=== PATIENT | female | born 1975 | race African-American/Black ===

== ENCOUNTER → 2017-09-25 | Outpatient (CLI) | payer BC ==
[~2017-09-25] MED LIST: CONTRAST GIVEN MC
[2017-09-25] MEDS: IOHEXOL 240 MG/ML 50ML VIAL. PO ×2 (10:49)
[2017-09-25] MEDS: IOHEXOL 300 MG/ML 100ML VIAL. IV ×2 (10:49)
== END | disposition home or self-care (01) ==
LOC: KCIC CT 09:27
DX: M51.37 Other intervertebral disc degeneration, lumbosacral region (principal); M47.817 Spondylosis without myelopathy or radiculopathy, lumbosacral region; R10.2 Pelvic and perineal pain
CPT/HCPCS: 74177; Q9966; Q9967

== ENCOUNTER 2018-07-27 21:32 | Emergency (ER) | payer BC ==
[~2018-07-27] VITALS: Ht 157.5 cm; Wt 53.1 kg
[~2018-07-27 21:32] MED LIST changes: -CONTRAST GIVEN MC; +DICY20TA3 PO
[2018-07-28] MEDS ORDERED: METH4TAB2 PO (01:01)
[2018-07-28] MEDS ORDERED: CLOB15CR TP (01:01)
[2018-07-28] MEDS ORDERED: DOXY100C2 PO (01:01)
--- NOTE | 2018-07-28 01:03 | PHYS DOC ---
Past Medical History Past Medical History: Other Additional Past Medical Histor: ECZEMA Past Surgical History: Other Additional Past Surgical Histo: HERNIA REPAIR, ABLASION Alcohol Use: Occasionally Drug Use: None Adult General Chief Complaint Chief Complaint: SKIN RASH/ABSCESS [facility] Patient is a 42 year old female who presents with an exacerbation of her eczema. The patient has widespread eczema to bilateral extremities, abdomen and back. She has actually been in a clinical trial but stopped the medication thinking it was exacerbating the condition. Review of Systems Review of Systems Constitutional: Denies fever or chills [] Respiratory: Denies cough or shortness of breath [] Cardiovascular: No additional information not addressed in HPI [] GI: Denies abdominal pain, nausea, vomiting, bloody stools or diarrhea [] : Denies dysuria or hematuria [] Musculoskeletal: Denies back pain or joint pain [] Integument: See history of present illness Neurologic: Denies headache, focal weakness or sensory changes [] Endocrine: Denies polyuria or polydipsia [] All other systems were reviewed and found to be within normal limits, except as documented in this note. Allergies Allergies Allergies Coded Allergies Type Severity Reaction Last Updated Verified No Known Drug Allergies 09/25/17 No Physical Exam Physical Exam Constitutional: Well developed, well nourished, no acute distress, non-toxic appearance. [] Cardiovascular:Heart rate regular rhythm, no murmur [] Lungs & Thorax: Bilateral breath sounds clear to auscultation [] Abdomen: Bowel sounds normal, soft, no tenderness, no masses, no pulsatile masses. [] Skin: The patient has thickening to her skin over bilateral forearms, abdomen, and back with a small erythematous papules that show signs of excoriation, this appears to be a secondary skin infection Back: No tenderness, no CVA tenderness. [] Extremities: No tenderness, no cyanosis, no clubbing, ROM intact, no edema. [] Neurologic: Alert and oriented X 3, normal motor function, normal sensory function, no focal deficits noted. [] Psychologic: Affect normal, judgement normal, mood normal. [] Current Patient Data Vital Signs Vital Signs Date Time Temp Pulse Resp B/P (MAP) Pulse Ox O2 Delivery O2 Flow Rate FiO2 07/28/18 01:19 64 18 106/66 (79) 99 Room Air 07/27/18 22:13 98.1 98.1 EKG EKG [] Radiology/Procedures Radiology/Procedures [] Course & Med Decision Making Course & Med Decision Making Pertinent Labs and Imaging studies reviewed. (See chart for details) [] Staff Physician Addendum: I was working in the ER during the course of this patient's visit. I was available for consultation as needed, but I was not directly involved in the care of this patient. Dragon Disclaimer Dragon Disclaimer This electronic medical record was generated, in whole or in part, using a voice recognition dictation system. Departure Departure Impression: Primary Impression: Eczema Additional Impression: Secondary infection of skin Disposition: HOME, SELF-CARE Condition: STABLE Referrals: NO PCP (PCP) Patient Instructions: Eczema, Skin Infections Additional Instructions: Use the cream as directed. Take the Medrol Dosepak with food on your stomach. Make sure to have food on her stomach when you take the doxycycline as well. Follow-up with your primary care provider for a recheck of your eczema in one week or return to the emergency department if worsening. Scripts Doxycycline Hyclate (DOXYCYCLINE HYCLATE) 100 Mg Capsule 1 CAP PO BID for skin infection, #20 CAP Prov: PHIL BABIN APRN 07/28/18 Methylprednisolone (MEDROL) 4 Mg Tab.ds.pk 1 PKG PO UD for itching, #1 PKG Prov: PHIL BABIN APRN 07/28/18 Clobetasol Propionate (CLOBETASOL PROPIONATE) 15 Gm Cream..g. 1 RAI TP BID for itching, #30 GM 1 Refill Prov: PHIL BABIN APRN 07/28/18 Problem Qualifiers PHIL BABIN APRN Jul 28, 2018 01:03 LEESA WATERMAN MD Jul 28, 2018 03:18
[2018-07-28 01:19] VITALS: BP 106/66
== END 2018-07-28 01:23 | disposition home or self-care (01) ==
LOC: ER 21:32
DX: L30.8 Other specified dermatitis (principal); L08.89 Other specified local infections of the skin and subcutaneous tissue
CPT/HCPCS: 99283

== ENCOUNTER 2018-08-18 19:55 | Emergency (ER) | payer BC, OTHER ==
[~2018-08-18] VITALS: Ht 157.5 cm; Wt 53.1 kg
[2018-08-18 19:55] VITALS: BP 128/65
[~2018-08-18 19:55] MED LIST changes: +CLOB15CR TP; +DOXY100C2 PO; +METH4TAB2 PO
[2018-08-18] MEDS ORDERED: DOXY100C14 PO (20:19)
[2018-08-18] MEDS ORDERED: PRED20TA PO (20:19)
[2018-08-18] MEDS ORDERED: HYDR453. TP (20:19)
--- NOTE | 2018-08-18 20:19 | PHYS DOC ---
Past Medical History Past Medical History: Other Additional Past Medical Histor: ECZEMA Past Surgical History: Other Additional Past Surgical Histo: HERNIA REPAIR, ABLASION Alcohol Use: Occasionally Drug Use: None Adult General Chief Complaint Chief Complaint: SKIN RASH/ABSCESS HPI HPI Patient is a 42 year old F with severe eczema on her back, arms and legs. She was seen here in late Jun and given steroids and abx and did well but states it has returned and is horribly itchy and grewal. Review of Systems Review of Systems Constitutional: Denies fever or chills [] Eyes: Denies change in visual acuity, redness, or eye pain [] HENT: Denies nasal congestion or sore throat [] Respiratory: Denies cough or shortness of breath [] Cardiovascular: No additional information not addressed in HPI [] GI: Denies abdominal pain, nausea, vomiting, bloody stools or diarrhea [] : Denies dysuria or hematuria [] Musculoskeletal: Denies back pain or joint pain [] Integument: Denies rash or skin lesions [] Neurologic: Denies headache, focal weakness or sensory changes [] Endocrine: Denies polyuria or polydipsia [] All other systems were reviewed and found to be within normal limits, except as documented in this note. Allergies Allergies Allergies Coded Allergies Type Severity Reaction Last Updated Verified No Known Drug Allergies 09/25/17 No Physical Exam Physical Exam Constitutional: Well developed, well nourished, no acute distress, non-toxic appearance. [] HENT: Normocephalic, atraumatic, bilateral external ears normal, oropharynx moist, no oral exudates, nose normal. [] Eyes: PERRLA, EOMI, conjunctiva normal, no discharge. [] Neck: Normal range of motion, no tenderness, supple, no stridor. [] Cardiovascular:Heart rate regular rhythm, no murmur [] Lungs & Thorax: Bilateral breath sounds clear to auscultation [] Abdomen: Bowel sounds normal, soft, no tenderness, no masses, no pulsatile masses. [] Skin: Warm, dry, no erythema, no rash. [] Back: No tenderness, no CVA tenderness. [] Extremities: No tenderness, no cyanosis, no clubbing, ROM intact, no edema. [] Neurologic: Alert and oriented X 3, normal motor function, normal sensory function, no focal deficits noted. [] Psychologic: Affect normal, judgement normal, mood normal. [] EKG EKG [] Radiology/Procedures Radiology/Procedures [] Course & Med Decision Making Course & Med Decision Making Pertinent Labs and Imaging studies reviewed. (See chart for details) [] Dragon Disclaimer Dragon Disclaimer This electronic medical record was generated, in whole or in part, using a voice recognition dictation system. Departure Departure Impression: Primary Impression: Eczema Disposition: HOME, SELF-CARE Condition: STABLE Referrals: NO PCP (PCP) RADHA BENDER MD Patient Instructions: Eczema Additional Instructions: You will need follow up with dermatology due to the extent of this rash. Dr. Radha Bender is a local rn primary care at [phone] or you can try [facility] or [facility] Scripts Hydrocortisone (HYDROCORTISONE) 453.6 Gm Cream..g. 1 RAI TP BID, #30 GM Mix with Eucerin (generic is fine) and apply at bedtime and in morning Prov: SANTOSH GUTIÉRREZ 08/18/18 Prednisone (PREDNISONE) 20 Mg Tablet 1 TAB PO DAILY, #5 TAB start medicine on 08/19/18 since given shot today in ER Prov: SANTOSH GUTIÉRREZ 08/18/18 Doxycycline Monohydrate (DOXYCYCLINE MONOHYDRATE) 100 Mg Capsule 1 CAP PO BID, #14 CAP Prov: SANTOSH GUTIÉRREZ 08/18/18 SANTOSH GUTIÉRREZ Aug 18, 2018 20:19
[2018-08-18] MEDS ORDERED: DEXAMETHASONE SOD PHOS 20 MG/5 ML VIAL. IM ONE (20:30)
== END 2018-08-18 20:25 | disposition home or self-care (01) ==
LOC: ER 19:55
DX: L30.9 Dermatitis, unspecified (principal)
CPT/HCPCS: 96372; 99283; J1100

== ENCOUNTER → 2019-05-06 | Outpatient (CLI) | payer OTHER ==
[~2019-05-06] MED LIST changes: +DOXY100C14 PO; +HYDR453. TP; +PRED20TA PO
--- NOTE | 2019-05-07 14:54 | RAD ---
DATE: 05/06/2019 EXAM: DIGITAL SCREEN BILAT W/CAD HISTORY: Asymptomatic screening mammogram. COMPARISON: 03/18/2015 This study was interpreted with the benefit of Computerized Aided Detection (CAD). Breast Density: HETERO The breast parenchyma is heterogenously dense, which could reduce sensitivity of mammography. Breast parenchyma level C. FINDINGS: There is an asymmetry in the upper right breast on seen on the right MLO view along the chest wall. Further evaluation with spot compression right MLO view is recommended. No suspicious microcalcifications, masses or areas of architectural distortion identified left breast. IMPRESSION: 1. Negative left mammogram. 2. Incomplete right mammogram. Additional imaging is recommended. BI-RADS CATEGORY: 0 INCOMPLETE: NEEDS ADDITIONAL IMAGING EVALUATION AND/OR PRIOR MAMMOGRAMS FOR COMPARISON. RECOMMENDED FOLLOW-UP: ADD ADDITIONAL IMAGING PQRS compliance statement: Mammography is a sensitive method for finding small breast cancers, but it does not detect them all and is not a substitute for careful clinical examination. A negative mammogram does not negate a clinically suspicious finding and should not result in delay in biopsying a clinically suspicious abnormality. "Our facility is accredited by the [employer] Mammography Program."
== END | disposition home or self-care (01) ==
LOC: MAMMO 09:41
PROVIDERS: ATTEND Obstetrics & Gynecology
DX: Z12.31 Encounter for screening mammogram for malignant neoplasm of breast (principal)
CPT/HCPCS: 77067

== ENCOUNTER → 2019-05-14 | Outpatient (CLI) | payer OTHER ==
--- NOTE | 2019-05-14 13:37 | RAD ---
DATE: 03/18/2015 EXAM: DIGITAL DIAGNOSTIC RT HISTORY: Abnormal mammogram COMPARISON: 03/18/2015 and 05/06/2019 screen mammographic exams This study was interpreted with the benefit of Computerized Aided Detection (CAD). Breast Density: HETERO The breast parenchyma is heterogenously dense, which could reduce sensitivity of mammography. Breast parenchyma level C. FINDINGS: No persistent mass upon spot compression at the posterior right upper breast where an asymmetry was reported on prior screening exam. IMPRESSION: Stable BI-RADS CATEGORY: 1 NEGATIVE RECOMMENDED FOLLOW-UP: 12M 12 MONTH FOLLOW-UP PQRS compliance statement: Patient information was entered into a reminder system with a target due date for the next mammogram. Mammography is a sensitive method for finding small breast cancers, but it does not detect them all and is not a substitute for careful clinical examination. A negative mammogram does not negate a clinically suspicious finding and should not result in delay in biopsying a clinically suspicious abnormality. "Our facility is accredited by the [employer] Mammography Program."
== END | disposition home or self-care (01) ==
LOC: MAMMO 12:50
PROVIDERS: ATTEND Obstetrics & Gynecology
DX: R92.2 Inconclusive mammogram (principal)
CPT/HCPCS: 77065

== ENCOUNTER → 2020-05-19 | Outpatient (CLI) | payer OTHER ==
--- NOTE | 2020-05-20 09:03 | RAD ---
DATE: 05/19/2020 EXAM: DIGITAL SCREEN BILAT W/CAD HISTORY: Screening COMPARISON: 03/18/2015, 05/06/2019 This study was interpreted with the benefit of Computerized Aided Detection (CAD). Breast Density: HETERO The breast parenchyma is heterogenously dense, which could reduce sensitivity of mammography. Breast parenchyma level C. FINDINGS: No mass, suspicious calcification, or architectural distortion in either breast. IMPRESSION: No evidence of malignancy. BI-RADS CATEGORY: 1 NEGATIVE RECOMMENDED FOLLOW-UP: 12M 12 MONTH FOLLOW-UP PQRS compliance statement: Patient information was entered into a reminder system with a target due date 05/20/2021 for the next mammogram. Mammography is a sensitive method for finding small breast cancers, but it does not detect them all and is not a substitute for careful clinical examination. A negative mammogram does not negate a clinically suspicious finding and should not result in delay in biopsying a clinically suspicious abnormality. "Our facility is accredited by the [employer] Mammography Program."
== END ==
LOC: MAMMO 10:25
PROVIDERS: ATTEND Obstetrics & Gynecology
DX: Z12.31 Encounter for screening mammogram for malignant neoplasm of breast (principal)
CPT/HCPCS: 77067

== ENCOUNTER → 2021-03-12 | Outpatient (CLI) | payer OTHER ==
[~2021-03-12] MED LIST changes: +DOXY-181 PO; -DOXY100C14 PO; -DOXY100C2 PO; +DOXY100C3 PO
--- NOTE | 2021-03-12 13:15 | RAD ---
EXAM: ULTRASOUND-GUIDED THYROID FINE-NEEDLE ASPIRATION. HISTORY: Thyroid nodule. Ultrasound-guided biopsy is requested. FINDINGS: The procedure along with its risks and benefits were explained to the patient. She agreed t o proceed. A timeout procedure was performed. Sonographic imaging of the thyroid gland was performed. This reveals multiple isoechoic heterogeneous nodules on the left and within the isthmus. The nodule inferiorly at the lower pole was suggested to be hypoechoic on the prior study of 02/02/2021, but has identical characteristics to the remainder o f the left thyroid nodules and is isoechoic on real-time imaging. These findings were discussed with the patient who elected to biopsy the most suspicious lesion. Thus, the largest nodule in the left in terpolar region measuring 2.9 cm was selected for biopsy. The overlying skin was sterilely prepped and infiltrated with 1% lidocaine for local anesthesia. Unde r ultrasound guidance, 4 aspirates were obtained using 25-gauge needles. These were hand delivered to pathology who determined them adequate for diagnosis. A sterile dressing was placed. There were no i mmediate complications. IMPRESSION: 1. Successful ultrasound-guided fine-needle aspiration of the 2.9 cm left thyroid in the interpolar r egion nodule. Electronically signed by: Dorie oLng MD (03/12/2021 1:13 PM) [id number]
--- NOTE | 2021-03-15 14:07 | PATHOLOGY ---
Note [facility] Accession Number: [id number] TESTS RESULT FLAG UNITS REF RANGE LAB Clinician Provided Cytology Information No. of containers..01 Other (Miscellaneous) Source: LEFT MID THY DIAGNOSIS: LEFT MID THY NEGATIVE FOR MALIGNANT CELLS. [place] CATEGORY II. SPECIMEN CONSISTS OF BENIGN FOLLICULAR CELLS, HEMOSIDERIN-LADEN MACROPHAGES, COLLOID, AND BLOOD. THIS PATTERN IS CONSISTENT WITH A COLLOID NODULE. COLLOID IS PRESENT. RED BLOOD CELLS ARE PRESENT. THIS INTERPRETATION INCLUDES EVALUATION OF A CELL BLOCK. Pathologist ICD10: 02 E04.1 Signed out by: 02 Francisco Hayes MD, Pathologist NPI- [id number] Performed by: Rosa Murillo, Refractory Furnace Designer ([facility]) Gross description: 01 25ML, CLOUDY RED, 2A 2F 2H /LCS 03/13/2021 0106 Local FLAG LEGEND: L-Low Normal,H-High Normal,LL-Alert Low,HH-Alert High <-Panic Low,>-Panic High,A-Abnormal,AA-Critical Abnormal Performed at: [facility] [address] [place] [address] Martin Dominguez MD, 02 [address] [facility] [address] [id number] Francisco Hayes MD, Specimen Comment: A courtesy copy of this report has been sent to [phone], [phone] Specimen Comment: [id number] Specimen Comment: Report sent to / DR MARIE Specimen Comment: Report sent to Performed at: [address], [place] [id number] MD Martin Dominguez MD Phone: [phone]
== END ==
LOC: US 12:26
PROVIDERS: ATTEND Registered Nurse
DX: E04.1 Nontoxic single thyroid nodule (principal)
CPT/HCPCS: 10005